=== PATIENT | male | born 1980 | race Caucasian/White ===

== ENCOUNTER 2018-08-09 16:16 | Emergency (ER) | payer OTHER ==
[2018-08-09] MEDS ORDERED: cloNIDine 0.1 MG Tab PO ONE (16:41)
--- NOTE | 2018-08-09 16:46 | EDM.PDOC ---
ED HPI GENERAL MEDICAL PROBLEM - General Chief Complaint: General Stated Complaint: FELL Time Seen by Provider: 08/09/18 16:24 Source of Information: Reports: Patient History Limitations: Reports: No Limitations - History of Present Illness INITIAL COMMENTS - FREE TEXT/NARRATIVE: HISTORY AND PHYSICAL: History of present illness: Patient is a 38-year-old male who presents to the ED today with concerns of left rib pain after falling at work yesterday. Patient states upon falling initially it was not painful but overnight he had a hard time sleeping due to pain. He states he hit his ribs directly while tripping over a pipe [place]. He states he did not hit his head or injure any other body part. Patient denies prior injury to this area. Patient does have pain if he takes a big deep breath in. His pain a 5 out of 10. He denies any other health history. Patient denies shortness of breath, difficulties breathing, cough, fever, chills nausea, vomiting, change in stools , palpitations, or all other GI, , cardiovascular, respiratory concerns. Review of systems: As per history of present illness and below otherwise all systems reviewed and negative. Past medical history: As per history of present illness and as reviewed below otherwise noncontributory. Surgical history: As per history of present illness and as reviewed below otherwise noncontributory. Social history: See social history for further information Family history: As per history of present illness and as reviewed below otherwise noncontributory. Physical exam: General: patient is alert, oriented, and in no acute distress. He is sitting comfortably on exam table. HEENT: Atraumatic, normocephalic, pupils equal and reactive bilaterally, negative for conjunctival pallor or scleral icterus, mucous membranes moist, TMs normal bilaterally, throat clear, neck supple, nontender, trachea midline. No drooling or trismus noted. No meningeal signs. No hot potato voice noted. Lungs: Patient does have moderate pain to palpation of the costal cartilage of the ribs 8 through 12. Otherwise, clear to auscultation, breath sounds equal bilaterally. Heart: S1S2, regular rate and rhythm without overt murmur Abdomen: Soft, nondistended, nontender. Negative for masses or hepatosplenomegaly. Negative for costovertebral tenderness. Pelvis: Stable nontender. Genitourinary: Deferred. Rectal: Deferred. Skin: Intact, warm, dry. No lesions or rashes noted. Extremities: Atraumatic, negative for cords or calf pain. Neurovascular unremarkable. Neuro: Awake, alert, oriented. Cranial nerves II through XII unremarkable. Cerebellum unremarkable. Motor and sensory unremarkable throughout. Exam nonfocal. Notes: Patient states he does have high blood pressure but not formally diagnosed. He was informed that he is supposed to be on blood pressure medication, but never followed through. He is agreeable to lab work to review his HTN history. X-ray today shows no acute cardiopulmonary process and no acute osseous findings. Discussed the importance of following up with his primary care provider. Will give lisinopril for 20 days with the intention for him to follow- up with his primary care provider to resume care and prescription for this. Patient was offered Toradol today for pain in the ED but he declines. Supportive care measures were reviewed and discussed. Voices understanding and is agreeable to plan of care. Denies any further questions or concerns at this time. Diagnostics: CBC, CMP, UA, rib x-ray Therapeutics: Clonidine Prescription: Lisinopril Impression: Rib pain, left Hypertension Plan: 1. Please decrease your sodium intake. Take lisinopril as directed. 2. Alternate ibuprofen and Tylenol as directed and as discussed for pain. 3. Follow-up with your primary care provider as we discussed in the next 1-2 days for reevaluation of her blood pressure. Return to the ED as needed and as discussed. Definitive disposition and diagnosis as appropriate pending reevaluation and review of above. Left Thoracic Pain Score (Numeric/FACES): 2 - Related Data Allergies Allergy/AdvReac Type Severity Reaction Status Date / Time No Known Allergies Allergy Verified 08/09/18 16:46 Home Meds: Home Meds . [No Known Home Meds] 08/09/18 [History] ED ROS GENERAL - Review of Systems Review Of Systems: ROS reveals no pertinent complaints other than HPI. ED EXAM, GENERAL - Physical Exam Exam: See Below (See dictation) Course - Vital Signs Last Recorded V/S: Last Vital Signs Temp 97 F 08/09/18 16:47 Pulse 82 08/09/18 16:47 Resp 16 08/09/18 16:47 BP 162/105 H 08/09/18 17:03 Pulse Ox 96 08/09/18 16:47 - Orders/Labs/Meds Orders: Active Orders 24 hr Category Date Time Status Ribs 2V w Chest Lt [CR] Stat Exams 08/09/18 16:41 Taken Labs: Laboratory Tests 08/09/18 08/09/18 08/09/18 Range/Units 16:57 16:57 17:50 WBC 10.02 (4.0-11.0) K/uL RBC 5.81 (4.50-5.90) M/uL Hgb 15.6 (13.0-17.0) g/dL Hct 47.4 (38.0-50.0) % MCV 81.6 (80.0-98.0) fL MCH 26.9 L (27.0-32.0) pg MCHC 32.9 (31.0-37.0) g/dL RDW Std Deviation 40.7 (28.0-62.0) fl RDW Coeff of [place]az 14 (11.0-15.0) % Plt Count 324 (150-400) K/uL MPV 9.60 (7.40-12.00) fL Neut % (Auto) 67.4 (48.0-80.0) % Lymph % (Auto) 23.8 (16.0-40.0) % Sch[place] % (Auto) 7.1 (0.0-15.0) % Eos % (Auto) 1.5 (0.0-7.0) % Baso % (Auto) 0.2 (0.0-1.5) % Neut # (Auto) 6.8 H (1.4-5.7) K/uL Lymph # (Auto) 2.4 (0.6-2.4) K/uL Schleicher # (Auto) 0.7 (0.0-0.8) K/uL Eos # (Auto) 0.2 (0.0-0.7) K/uL Baso # (Auto) 0.0 (0.0-0.1) K/uL Nucleated RBC % 0.0 /100WBC Nucleated RBCs # 0 K/uL Sodium 139 (136-148) mmol/L Potassium 4.1 (3.5-5.1) mmol/L Chloride 103 (98-107) mmol/L Carbon Dioxide 25.8 (21.0-32.0) mmol/L BUN 11 (7.0-18.0) mg/dL Creatinine 1.0 (0.8-1.3) mg/dL Est Cr Clr Drug Dosing 92.16 mL/min Estimated GFR (MDRD) > 60.0 ml/min Glucose 101 (74-106) mg/dL Calcium 9.3 (8.5-10.1) mg/dL Total Bilirubin 0.3 (0.2-1.0) mg/dL AST 19 (15-37) IU/L ALT 22 (14-63) IU/L Alkaline Phosphatase 103 (46-116) U/L Total Protein 7.7 (6.4-8.2) g/dL Albumin 4.1 (3.4-5.0) g/dL Globulin 3.6 (2.6-4.0) g/dL Albumin/Globulin Ratio 1.1 (0.9-1.6) Urine Color YELLOW Urine Appearance CLEAR Urine pH 7.0 (5.0-8.0) Ur Specific [place] 1.010 (1.001-1.035) Urine Protein NEGATIVE (NEGATIVE) mg/dL Urine Glucose (UA) NEGATIVE (NEGATIVE) mg/dL Urine Ketones NEGATIVE (NEGATIVE) mg/dL Urine Occult Blood NEGATIVE (NEGATIVE) Urine Nitrite NEGATIVE (NEGATIVE) Urine Bilirubin NEGATIVE (NEGATIVE) Urine Urobilinogen 0.2 (<2.0) EU/dL Ur Leukocyte Esterase NEGATIVE (NEGATIVE) Meds: Medications Discontinued Medications Generic Name Dose Route Start Last Admin Trade Name Freq PRN Reason Stop Dose Admin Clonidine HCl 0.1 mg 08/09/18 16:41 08/09/18 17:03 Catapres PO 08/09/18 16:42 0.1 mg ONETIME ONE Administration Lisinopril 10 mg 08/09/18 17:32 Prinivil PO 08/09/18 17:33 ONETIME ONE Departure - Departure Time of Disposition: 18:11 Disposition: Home, Self-Care 01 Clinical Impression: Rib injury - Discharge Information Referrals: PCP,Unknown [Primary Care Provider] - Forms: ED Department Discharge Additional Instructions: The following information is given to patients seen in the emergency department who are being discharged to home. This information is to outline your options for follow-up care. We provide all patients seen in our emergency department with a follow-up referral. The need for follow-up, as well as the timing and circumstances, are variable depending upon the specifics of your emergency department visit. If you don't have a primary care physician on staff, we will provide you with a referral. We always advise you to contact your personal physician following an emergency department visit to inform them of the circumstance of the visit and for follow-up with them and/or the need for any referrals to a consulting specialist. The emergency department will also refer you to a specialist when appropriate. This referral assures that you have the opportunity for follow-up care with a specialist. All of these measure are taken in an effort to provide you with optimal care, which includes your follow-up. Under all circumstances we always encourage you to contact your private physician who remains a resource for coordinating your care. When calling for follow-up care, please make the office aware that this follow-up is from your recent emergency room visit. If for any reason you are refused follow-up, please contact the [facility] Emergency Department at and asked to speak to the emergency department charge nurse. [facility] [address] [place] [address] [place] [address] 1. Please decrease your sodium intake. Take lisinopril as directed. 2. Alternate ibuprofen and Tylenol as directed and as discussed for pain. 3. Follow-up with your primary care provider as we discussed in the next 1-2 days for reevaluation of her blood pressure. Return to the ED as needed and as discussed. - My Orders Last 24 Hours: My Active Orders 08/09/18 16:41 Ribs 2V w Chest Lt [CR] Stat - Assessment/Plan Last 24 Hours: My Active Orders 08/09/18 16:41 Ribs 2V w Chest Lt [CR] Stat
[2018-08-09] MEDS ORDERED: Lisinopril 10 MG Tab PO ONE (17:32)
[2018-08-09 17:57] LABS: CHLORIDE,CL 103 mmol/L (98-107); SODIUM,NA 139 mmol/L (136-148)
--- NOTE | 2018-08-09 18:23 | CR ---
Indication: Fall today. Technique: A PA view of the chest was obtained. Three views of the left ribs were obtained. Comparison: None Findings: Heart is normal in size. The lungs are clear. No infiltrate, pleural effusion, pneumothorax is identified. No displaced left rib fractures are identified. Impression: No displaced left rib fractures. Dictated by Misty Ellis MD @ Aug 09 2018 6:04PM Signed by Dr. Misty Ellis @ Aug 09 2018 6:22PM
== END 2018-08-09 18:22 | disposition home or self-care (01) ==
LOC: MW.ED 16:16
DX: S29.9XXA Unspecified injury of thorax, initial encounter (principal); I10 Essential (primary) hypertension; W01.10XA Fall on same level from slipping, tripping and stumbling with subsequent striking against unspecified object, initial encounter; Y99.0 Civilian activity done for income or pay
CPT/HCPCS: 36415; 71101; 80053; 81003; 85025; 99283; A9270